=== PATIENT | female | born 1945 | race Hispanic/Latino ===

== ENCOUNTER 2016-12-01 10:50 | Emergency (ER) | payer MEDICARE ==
[2016-12-01 10:58] VITALS: BP 155/78; PULSE 80; RESP 18; TEMP 98.7; O2SAT 100
[2016-12-01] MEDS ORDERED: Sodium Chloride 0.9% 1,000 ML IV STA (11:22)
--- NOTE | 2016-12-01 11:26 | ED PDOC ---
HPI: General Adult Time Seen by Provider: 12/01/16 11:09 Chief Complaint (Nursing): Weakness/Neurological Deficit History Per: Patient (presents to the ER because of concerns over sensation of bilateral lower extremity weakness that she has noticed for the past 2-3 weeks. She states that she was seen by her PMD 2 weeks ago but reports that no tests were done. States that her gait is not affecteed by this weakness. She has also noticed her heart beating fasting but that there is no other heart or lung symptoms) History/Exam Limitations: no limitations Onset/Duration Of Symptoms: Intermittent Episodes Current Symptoms Are (Timing): Still Present Severity: Mild Past Medical History Reviewed: Historical Data, Nursing Documentation, Vital Signs Vital Signs: Last Vital Signs Temp 98.7 F 12/01/16 10:55 Pulse 80 12/01/16 10:55 Resp 18 12/01/16 10:55 BP 155/78 H 12/01/16 10:55 Pulse Ox 100 12/01/16 11:28 - Surgical History Surgical History: No Surg Hx - Family History Family History: States: No Known Family Hx - Living Arrangements Living Arrangements: Alone () - Social History Current smoker - smoking cessation education provided: No Ex-Smoker (has not smoked in the last 12 months): No Alcohol: None Drugs: Denies - Allergies Allergies/Adverse Reactions: Allergies Allergy/AdvReac Type Severity Reaction Status Date / Time No Known Allergies Allergy Verified 12/01/16 10:58 Review of Systems ROS Statement: Except As Marked, All Systems Reviewed And Found Negative Cardiovascular: Positive for: Palpitations. Negative for: Chest Pain Respiratory: Negative for: Cough, Shortness of Breath Gastrointestinal: Negative for: Nausea, Vomiting, Abdominal Pain, Diarrhea Genitourinary Female: Negative for: Dysuria, Hematuria Musculoskeletal: Negative for: Neck Pain, Shoulder Pain Neurological: Negative for: Weakness, Numbness, Incoordination, Change in Speech , Confusion, Seizures, Altered Mental Status - Laboratory Results Result Diagrams: 12/01/16 11:38 12/01/16 11:38 - ECG ECG: Positive for: Viewed By Me ECG Rhythm: Positive for: Normal QRS Interpretation Of ECG: normal O2 Sat by Pulse Oximetry: 100 - Progress Re-evaluation Time: 12:35 Condition: Re-examined Disposition - Clinical Impression Clinical Impression: Leg weakness, bilateral, Intermittent palpitations - Patient ED Disposition Is Patient to be Admitted: No Doctor Will See Patient In The: Office - Disposition Referrals: Alhaji Eli I [Medical Doctor] - Disposition: Routine/Home Disposition Time: 12:15 Condition: STABLE Instructions: Weakness (ED), Palpitations (ED) Forms: [facility] (Bangladeshi) - POA Present On Arrival: None
[2016-12-01 11:43] LABS: BASO % 0.3 % (0.0-2.0); EOS % 0.1 % (0.0-4.0); HEMATOCRIT 40.3 % (34.0-47.0); LYMPH # 1.3 K/uL (1.0-4.3); LYMPH % 14.9 % (20.0-40.0); MEAN CELL VOLUME 94.7 fl (81.0-99.0); MEAN CORPUSCULAR HEMOGLOBIN 31.9 pg (27.0-31.0); MEAN CORPUSCULAR HGB CONC 33.6 g/dL (33.0-37.0); MEAN PLATELET VOLUME 9.1 fl (7.2-11.7); MONO # 0.3 K/uL (0.0-0.8); MONO % 3.2 % (0.0-10.0); NEUT # 7.1 K/uL (1.8-7.0); NEUT % 81.5 % (50.0-75.0); NRBC % 0.1 % (0.0-0.0); RED CELL DISTRIBUTION WIDTH 12.6 % (11.5-14.5); WHITE BLOOD COUNT 8.7 K/uL (4.8-10.8)
[2016-12-01 11:58] LABS: ALB/GLOB RATIO 1.6 (1.0-2.1); ALKALINE PHOSPHATASE 98 U/L (38-126); ALT/SGPT 43 U/L (9-52); AST/SGOT 30 U/L (14-36); BILIRUBIN,TOTAL 1.2 mg/dl (0.2-1.3); BLOOD UREA NITROGEN 10 mg/dl (7-17); CARBON DIOXIDE 23 mmol/L (22-30); CHLORIDE 107 mmol/L (98-107); GFR AFRICAN-AMERICAN > 60; GLUCOSE,RANDOM 105 mg/dL (65-105); POTASSIUM 3.9 MMOL/L (3.6-5.0); SODIUM 144 mmol/l (132-148); TOTAL PROTEIN 8.4 G/DL (6.3-8.2)
--- NOTE | 2016-12-01 15:14 | CARD ---
APPROVED REPORT EKG Measurement Heart [id number] <Conclusion> Sinus rhythm with premature atrial complexes Otherwise normal ECG
[2016-12-01 18:13] LABS: FOLATE > 20.0 ng/mL
== END 2016-12-01 12:49 | disposition home or self-care (01) ==
LOC: H.ER 10:50
DX: R53.1 Weakness (principal); R00.2 Palpitations; I49.1 Atrial premature depolarization; Z87.891 Personal history of nicotine dependence
CPT/HCPCS: 80053; 82607; 82746; 82948; 85025; 93005; 99285; G0480; J7040

== ENCOUNTER 2016-12-11 14:10 | Emergency (ER) | payer MEDICARE ==
[2016-12-11] MEDS ORDERED: Iohexol 240 (50 ml) ONE (15:27)
[2016-12-11] MEDS ORDERED: Sodium Chloride 0.9% 50 ML IV ONE (17:45)
[2016-12-11] MEDS ORDERED: Iohexol 300 100 ML IJ ONE (17:45)
[2016-12-12 21:46] LABS: HEMOGLOBIN 13.3 g/dL (12.0-16.0); MEAN CELL VOLUME 96.4 fl (81.0-99.0); MEAN CORPUSCULAR HEMOGLOBIN 31.8 pg (27.0-31.0); RBC 4.16 Mil/uL (3.80-5.20); WHITE BLOOD COUNT 7.8 K/uL (4.8-10.8)
[2016-12-12 21:47] LABS: BASO % 0.7 % (0.0-2.0); EOS % 0.2 % (0.0-4.0); LYMPH # 1.4 K/uL (1.0-4.3); LYMPH % 17.7 % (20.0-40.0); MEAN PLATELET VOLUME 9.6 fl (7.2-11.7); MONO # 0.4 K/uL (0.0-0.8); MONO % 5.4 % (0.0-10.0); NEUT # 5.9 K/uL (1.8-7.0); NRBC % 0.1 % (0.0-0.0); RED CELL DISTRIBUTION WIDTH 12.7 % (11.5-14.5)
[2016-12-12 21:48] LABS: BASO # 0.1 K/uL (0.0-0.2)
[2016-12-13 07:38] LABS: ALB/GLOB RATIO 1.6 (1.0-2.1); ALBUMIN 5.1 g/dL (3.5-5.0); CALCIUM 9.9 mg/dL (8.4-10.2)
--- NOTE | 2016-12-13 15:18 | CT ---
PROCEDURE: CT abdomen pelvis dated 12/11/2016 HISTORY: Abdominal pain COMPARISON: None. TECHNIQUE: Contiguous axial images of the abdomen and pelvis performed following oral and intravenous injection of approximately 80 cc Omnipaque 300 contrast material. . Coronal and Sagittal reformats generated. Radiation dose: Total exam DLP = 337.01 mGy-cm. This CT exam was performed using one or more of the following dose reduction techniques: Automated exposure control, adjustment of the mA and/or kV according to patient size, and/or use of iterative reconstruction technique. FINDINGS: LOWER THORAX: Mild dependent/ passive type atelectasis both lung bases. Lung bases otherwise clear LIVER: Liver exhibits normal size. Mild fatty hepatic infiltration. . No obvious hepatic mass or collection however tiny at calcification left lobe liver most consistent with a tiny calcified granulomata and prior exposure to prior exposure to a granulomatous disease process. . Portal and splenic veins are opacified. GALLBLADDER AND BILE DUCTS: Gallbladder appears incompletely distended. . No evidence of intraluminal gallbladder calculi. PANCREAS: Unremarkable. No mass. No ductal dilatation. SPLEEN: Few calcified granulomata seen within the splenic parenchyma consistent with prior exposure to a granulomatous disease process. ADRENALS: No adrenal lesions. KIDNEYS AND URETERS: Kidneys demonstrate symmetric nephrograms. No evidence of nephrolithiasis or hydronephrosis. BLADDER: Urinary bladder is physiologically distended. No evidence of intraluminal urinary bladder calculi. REPRODUCTIVE: Unremarkable. APPENDIX: Unremarkable. BOWEL: Evaluation of the bowel is limited due to due to incomplete opacification. The stomach is incompletely distended which presumably accounts thick-walled appearance. Gastritis not excluded. Visualized loops of small bowel exhibit normal contour and caliber. No evidence of acute mechanical small bowel obstruction with oral contrast material extending into the colon to the level of the rectum. Scattered colonic diverticula the bulk of which arise from the sigmoid colon. There is moderate wall thickening of the distal sigmoid suggesting mild acute diverticulitis however no obvious inflammatory changes within the adjacent mesenteric this time. PERITONEUM: Unremarkable. No fluid collection. No free air. LYMPH NODES: Unremarkable. No enlarged lymph nodes. VASCULATURE: Unremarkable. No aortic aneurysm. BONES: Mild multilevel degenerative spondylosis of the lower thoracic and lumbar spine. OTHER FINDINGS: None. IMPRESSION: Diverticulosis with wall thickening of the distal sigmoid colon suggesting mild acute diverticulitis. Clinical correlation recommended. Note that these findings were discussed with emergency room physicians ophthalmic surgical assistant Kami Boyd at approximately 12:57 p.m. with written down and read back verification. . Mild fatty hepatic infiltration. Small calcified granuloma left lobe liver with a few small to medium sized calcified granuloma within the splenic parenchyma. Findings consistent with prior exposure to a granulomatous disease process.
[2016-12-15 19:43] VITALS: BMI 26.5
--- NOTE | 2016-12-16 06:51 | CARD ---
APPROVED REPORT EKG Measurement Heart [id number] MS [id number] <Conclusion> Sinus rhythm with short MS with frequent premature ventricular complexes Otherwise normal ECG
== END 2016-12-11 19:49 | disposition home or self-care (01) ==
LOC: H.ER 14:10
DX: E86.0 Dehydration (principal); D64.9 Anemia, unspecified; E87.8 Other disorders of electrolyte and fluid balance, not elsewhere classified; K85.90 Acute pancreatitis without necrosis or infection, unspecified; K29.70 Gastritis, unspecified, without bleeding
CPT/HCPCS: 74177; 80053; 82150; 83690; 85025; 99284; Q9967

== ENCOUNTER 2016-12-13 10:24 | Emergency (ER) | payer MEDICARE ==
[2016-12-13] MEDS ORDERED: Sodium Chloride 0.9% 1,000 ML IV STA (11:02)
--- NOTE | 2016-12-13 11:09 | ED PDOC ---
HPI: General Adult Time Seen by Provider: 12/13/16 10:46 Chief Complaint (Nursing): GI Problem Chief Complaint (Provider): nausea History Per: Patient History/Exam Limitations: no limitations Onset/Duration Of Symptoms: Days (x 2 weeks ) Additional Complaint(s): Gladis Clements is a 71 year old female, with no previous medical history, who presents to the ED for the evaluation of nausea ongoing for the past 2 weeks. Patient reports nausea is inhibiting her from eating solids causing her to feel "lousy" and believes to be loosing weight. She reports being able to tolerate liquids. Patient was seen by her PMD who prescribed zofran which is not providing her with relief. she denies any fever, abdominal pain or diarrhea. PMD: none provided Past Medical History Reviewed: Historical Data, Nursing Documentation, Vital Signs Vital Signs: Last Vital Signs Temp 97.6 F 12/13/16 15:49 Pulse 77 12/13/16 15:49 Resp 16 12/13/16 15:49 BP 126/72 12/13/16 15:49 Pulse Ox 97 12/16/16 12:36 - Medical History PMH: No Chronic Diseases - Family History Family History: States: Unknown Family Hx - Home Medications Home Medications: Ambulatory Orders Medication Instructions Recorded Famotidine [Pepcid] 20 mg PO BID #20 tab 12/13/16 Metoclopramide [Reglan] 10 mg PO TID PRN #15 tab 12/13/16 - Allergies Allergies/Adverse Reactions: Allergies Allergy/AdvReac Type Severity Reaction Status Date / Time No Known Allergies Allergy Verified 12/11/16 14:25 Review of Systems ROS Statement: Except As Marked, All Systems Reviewed And Found Negative Constitutional: Negative for: Fever, Chills Gastrointestinal: Positive for: Nausea. Negative for: Vomiting, Abdominal Pain , Diarrhea, Constipation Physical Exam - Reviewed Nursing Documentation Reviewed: Yes Vital Signs Reviewed: Yes - Physical Exam Appears: Positive for: Well, Non-toxic, No Acute Distress Head Exam: Positive for: ATRAUMATIC, NORMAL INSPECTION, NORMOCEPHALIC Skin: Positive for: Normal Color, Warm, DRY Eye Exam: Positive for: EOMI, Normal appearance, PERRL ENT: Positive for: Normal ENT Inspection Neck: Positive for: Normal, Painless ROM Cardiovascular/Chest: Positive for: Regular Rate, Rhythm Respiratory: Positive for: CNT, Normal Breath Sounds Gastrointestinal/Abdominal: Positive for: Normal Exam, Bowel Sounds, Soft. Negative for: Tenderness, Mass, Distended, Guarding, Rebound Back: Positive for: Normal Inspection Extremity: Positive for: Normal ROM Neurologic/Psych: Positive for: Alert, Oriented - Laboratory Results Result Diagrams: 12/13/16 11:21 12/13/16 11:21 - ECG O2 Sat by Pulse Oximetry: 97 (RA) Pulse Ox Interpretation: Normal Medical Decision Making Medical Decision Making: Initial Impression: nausea Initial Plan: * EKG * labs * lipase * urine dipstick * PT * PTT * IV NS 1,000 ml at 1,000 ml/hr * reglan 10 mg IV * urinalysis * reevaluation Scribe Attestation: Documented by Kierra Perrin, acting as a scribe for Kierra Moore MD. Provider Scribe Attestation: All medical record entries made by the Scribe were at my direction and personally dictated by me. I have reviewed the chart and agree that the record accurately reflects my personal performance of the history, physical exam, medical decision making, and the department course for this patient. I have also personally directed, reviewed, and agree with the discharge instructions and disposition. Disposition - Clinical Impression Clinical Impression: Nausea in adult, Gastritis - Disposition Referrals: Alhaji Eil I [Family Provider] - Disposition: Routine/Home Disposition Time: 15:39 Condition: STABLE Prescriptions: Famotidine [Pepcid] 20 mg PO BID #20 tab Metoclopramide [Reglan] 10 mg PO TID PRN #15 tab PRN Reason: Nausea/Vomiting Instructions: Gastritis (ED), Acute Nausea and Vomiting (ED)
[2016-12-13 11:29] LABS: BASO % 0.3 % (0.0-2.0); EOS % 0.1 % (0.0-4.0); HEMOGLOBIN 12.6 g/dL (12.0-16.0); LYMPH # 1.4 K/uL (1.0-4.3); LYMPH % 15.6 % (20.0-40.0); MEAN CELL VOLUME 96.1 fl (81.0-99.0); MEAN CORPUSCULAR HEMOGLOBIN 31.9 pg (27.0-31.0); MEAN CORPUSCULAR HGB CONC 33.2 g/dL (33.0-37.0); MEAN PLATELET VOLUME 9.3 fl (7.2-11.7); MONO # 0.4 K/uL (0.0-0.8); MONO % 4.5 % (0.0-10.0); NEUT # 6.9 K/uL (1.8-7.0); NEUT % 79.5 % (50.0-75.0); NRBC % 0.1 % (0.0-0.0); RBC 3.93 Mil/uL (3.80-5.20); WHITE BLOOD COUNT 8.7 K/uL (4.8-10.8)
[2016-12-13 11:42] LABS: ALB/GLOB RATIO 1.9 (1.0-2.1); ALBUMIN 4.8 g/dL (3.5-5.0); ALT/SGPT 30 U/L (9-52); AST/SGOT 32 U/L (14-36); BLOOD UREA NITROGEN 10 mg/dl (7-17); CALCIUM 9.8 mg/dL (8.4-10.2); GFR AFRICAN-AMERICAN 59; GFR NON-AFRICAN AMERICAN 49; LIPASE 239 U/L (23-300)
[2016-12-13 12:02] LABS: SQUAMOUS EPITHIAL < 1 /hpf (0-5); URINE BACTERIA RARE (<OCC); URINE BILIRUBIN NEGATIVE (NEGATIVE); URINE BLOOD NEGATIVE (NEGATIVE); URINE CLARITY CLEAR (Clear); URINE COLOR STRAW (YELLOW); URINE GLUCOSE (UA) NEG (Normal); URINE LEUKOCYTE ESTERASE MOD Leu/uL (Negative); URINE NITRATE NEGATIVE (NEGATIVE); URINE PROTEIN NEGATIVE (NEGATIVE); URINE UROBILINOGEN 0.2-1.0 mg/dL (0.2-1.0)
[2016-12-13 12:11] LABS: PARTIAL THROMBOPLASTIN TIME 28.7 Seconds (25.6-37.1); PROTHROMBIN TIME 11.2 Seconds (9.8-13.1)
--- NOTE | 2016-12-13 14:55 | RAD ---
HISTORY: Nausea COMPARISON: 12/11/2016. CT abdomen and pelvis. FINDINGS: BOWEL: Normal. No obstruction. No free air. Residual contrast in an otherwise unremarkable colon related to prior CT scan. BONES: Normal. OTHER FINDINGS: None. IMPRESSION: No acute findings related to/accounting for the clinical presentation. Additional benign and/or incidental findings described above.
[2016-12-13 15:50] VITALS: BP 126/72; PULSE 77; RESP 16; TEMP 97.6
--- NOTE | 2016-12-13 22:43 | CARD ---
APPROVED REPORT EKG Measurement Heart [id number] MO 110P52 [id number] <Conclusion> Sinus rhythm with short MO Septal infarct, age undetermined Abnormal ECG
[2016-12-16 12:37] VITALS: O2SAT 97
== END 2016-12-13 15:50 | disposition home or self-care (01) ==
LOC: H.ER 10:24
DX: K29.70 Gastritis, unspecified, without bleeding (principal); R11.0 Nausea
CPT/HCPCS: 74022; 80053; 81003; 83690; 84484; 85025; 85610; 85730; 93005; 96374; 99282; J2765; J7040

== ENCOUNTER 2016-12-19 18:23 | Emergency (ER) | payer MEDICARE ==
[2016-12-19 18:33] VITALS: BP 153/83; PULSE 90; RESP 18; TEMP 99.1; O2SAT 98
--- NOTE | 2016-12-19 19:11 | ED PDOC ---
HPI: General Adult Time Seen by Provider: 12/19/16 18:51 Chief Complaint (Nursing): Anxiety Chief Complaint (Provider): Weakness x 1 month History Per: Patient History/Exam Limitations: no limitations Onset/Duration Of Symptoms: Days Have you had recent travel within the past 21 days to any of the following countries: [place], [place], [place] or [place]?: No Current Symptoms Are (Timing): Still Present Additional Complaint(s): Pt reports generalized weakness and decreased appetite for 1 month. PT states she was seen here for the same a few days ago and was given pepcid and bentyl. Note was reviewed from previous visit and pt reports N/V at that time. PT denies any pain. PT states she has no appetite and was only able to eat 2 very sma/l meals today. PT denies fever/chills. PT states "I think I need an IV again ". Pt states this evening she felt like her heat was beating fast and she felt like she might pass out which has since resolved. PT was given Rx for zoloft by PMD 2 weeks ago. PT states she took one today but has not been taking it daily. Past Medical History Reviewed: Historical Data, Nursing Documentation, Vital Signs Vital Signs: Last Vital Signs Temp 99.1 F 12/19/16 18:31 Pulse 90 12/19/16 18:31 Resp 18 12/19/16 18:31 BP 153/83 H 12/19/16 18:31 Pulse Ox 98 12/19/16 19:19 - Medical History PMH: Anxiety - Surgical History Surgical History: No Surg Hx - Family History Family History: States: Unknown Family Hx - Home Medications Home Medications: Ambulatory Orders Medication Instructions Recorded Famotidine [Pepcid] 20 mg PO DAILY 12/19/16 Metoclopramide [Reglan] 10 mg PO TID PRN 12/19/16 Sertraline [Zoloft] 25 mg PO DAILY 12/19/16 - Allergies Allergies/Adverse Reactions: Allergies Allergy/AdvReac Type Severity Reaction Status Date / Time No Known Allergies Allergy Verified 12/19/16 18:31 Review of Systems ROS Statement: Except As Marked, All Systems Reviewed And Found Negative Cardiovascular: Positive for: Palpitations (Resolved ). Negative for: Chest Pain Physical Exam - Reviewed Nursing Documentation Reviewed: Yes Vital Signs Reviewed: Yes - Physical Exam Appears: Positive for: Well, Non-toxic, No Acute Distress Head Exam: Positive for: ATRAUMATIC, NORMAL INSPECTION, NORMOCEPHALIC Skin: Positive for: Normal Color, Warm, DRY Eye Exam: Positive for: EOMI, Normal appearance, PERRL ENT: Positive for: Normal ENT Inspection Neck: Positive for: Normal, Painless ROM Cardiovascular/Chest: Positive for: Regular Rate, Rhythm Respiratory: Positive for: Normal Breath Sounds. Negative for: Accessory Muscle Use Gastrointestinal/Abdominal: Positive for: Normal Exam, Bowel Sounds, Soft Back: Positive for: Normal Inspection Extremity: Positive for: Normal ROM Neurologic/Psych: Positive for: Alert, lens block gauger II-XII, Oriented, Gait. Negative for : Cerebellar Tests - ECG O2 Sat by Pulse Oximetry: 98 Medical Decision Making Medical Decision Making: Labs and head CT ordered. PT has normal chest and abdomen CT in the last 2 weeks. Endorsed at 2000 to Kami Jackson PA-C Disposition - Clinical Impression Clinical Impression: Generalized weakness - Patient ED Disposition Is Patient to be Admitted: Transfer of Care - Disposition Disposition: Transfer of Care Disposition Time: 19:42 Condition: STABLE Instructions: Weakness (ED)
[2016-12-19 20:00] LABS: HEMOGLOBIN 13.2 g/dL (12.0-16.0); MEAN CELL VOLUME 96.1 fl (81.0-99.0); MEAN CORPUSCULAR HEMOGLOBIN 31.9 pg (27.0-31.0); MEAN CORPUSCULAR HGB CONC 33.2 g/dL (33.0-37.0); RBC 4.14 Mil/uL (3.80-5.20); RED CELL DISTRIBUTION WIDTH 12.8 % (11.5-14.5); WHITE BLOOD COUNT 9.1 K/uL (4.8-10.8)
[2016-12-19 20:08] LABS: ALB/GLOB RATIO 1.8 (1.0-2.1); ALBUMIN 5.1 g/dL (3.5-5.0); ALT/SGPT 39 U/L (9-52); AST/SGOT 24 U/L (14-36); BLOOD UREA NITROGEN 9 mg/dl (7-17); GFR AFRICAN-AMERICAN > 60; GFR NON-AFRICAN AMERICAN 54
[2016-12-19 20:14] LABS: PARTIAL THROMBOPLASTIN TIME 31.5 Seconds (25.6-37.1); PROTHROMBIN TIME 11.1 Seconds (9.8-13.1)
--- NOTE | 2016-12-19 20:40 | CT ---
EXAM: CT Head Without Intravenous Contrast CLINICAL HISTORY: 71 years old, female; Pain; Headache; Other: Mild burgos's weakness loss of appetite; Additional info: Lightheadedness TECHNIQUE: Axial computed tomography images of the head/brain without intravenous contrast. This CT exam was performed using one or more of the following dose reduction techniques: automated exposure control, adjustment of the mA and/or kV according to patient size, and/or use of iterative reconstruction technique. Coronal and sagittal reformatted images were created and reviewed. EXAM DATE/TIME: 12/19/2016 7:22 PM COMPARISON: No relevant prior studies available. FINDINGS: BRAIN: Diffuse, age-related cortical atrophy and ventriculomegaly. Physiologic basal ganglia calcification. No significant acute abnormality identified. No acute hemorrhage seen within the brain. No acute extra-axial fluid collections visualized. No evidence of significant mass effect within the brain. Normal summers-white matter differentiation. VENTRICLES: See above. BONES/JOINTS: No acute fractures or other acute bony abnormality noted. SOFT TISSUES: No acute abnormality of the visualized soft tissues is seen. SINUSES: Visualized paranasal sinuses appear clear. MASTOID AIR CELLS: Mastoid air cells appear clear. IMPRESSION: - No acute findings seen within the brain. - See above for remaining findings.
--- NOTE | 2016-12-19 20:44 | ED PDOC ---
- Laboratory Results Result Diagrams: 12/19/16 19:52 12/19/16 19:50 - ECG O2 Sat by Pulse Oximetry: 98 Medical Decision Making Medical Decision Making: Case endorsed to administrative underwriter from AROLDO ford at 20:00 pending diagnostic review and re-eval HPI reviewed: HPI: General Adult Time Seen by Provider: 12/19/16 18:51 Chief Complaint (Nursing): Anxiety Chief Complaint (Provider): Weakness x 1 month History Per: Patient History/Exam Limitations: no limitations Onset/Duration Of Symptoms: Days Have you had recent travel within the past 21 days to any of the following countries: [place], [place], [place] or [place]?: No Current Symptoms Are (Timing): Still Present Additional Complaint(s): Pt reports generalized weakness and decreased appetite for 1 month. PT states she was seen here for the same a few days ago and was given pepcid and bentyl. Note was reviewed from previous visit and pt reports N/V at that time. PT denies any pain. PT states she has no appetite and was only able to eat 2 very sma/l meals today. PT denies fever/chills. PT states "I think I need an IV again ". Pt states this evening she felt like her heat was beating fast and she felt like she might pass out which has since resolved. PT was given Rx for zoloft by PMD 2 weeks ago. PT states she took one today but has not been taking it daily. Upon my eval, pt in bed in NAD. Pt calm and comfortable, offers no complaints. CT scan: Negative Labs resulted and reviewed with Pt who demonstrated full understanding Pt without any complaints on re-eval. stable for discharge home Disposition - Clinical Impression Clinical Impression: Generalized weakness - POA Present On Arrival: None - Disposition Disposition: Routine/Home Disposition Time: 22:14 Condition: STABLE Instructions: Weakness (ED)
--- NOTE | 2016-12-20 08:04 | CARD ---
APPROVED REPORT EKG Measurement Heart [id number] VT [id number] [id number] <Conclusion> Normal sinus rhythm Normal ECG
== END 2016-12-19 22:30 | disposition home or self-care (01) ==
LOC: H.ER 18:23
DX: R53.1 Weakness (principal)

== ENCOUNTER 2016-12-24 10:18 | Emergency (ER) | payer MEDICARE ==
[2016-12-24 10:34] VITALS: BP 152/90; RESP 18; TEMP 97.7; O2SAT 98
--- NOTE | 2016-12-24 11:05 | ED PDOC ---
HPI: General Adult Time Seen by Provider: 12/24/16 10:29 Chief Complaint (Nursing): Weakness/Neurological Deficit Chief Complaint (Provider): Generalized weakness History Per: Patient History/Exam Limitations: no limitations Onset/Duration Of Symptoms: Other (Two weeks) Additional Complaint(s): Patient is a 71 year old female with a history of anxiety presenting to the ED with complaints of generalized weakness and palpitations that has been ongoing for two weeks. Patient denies chest pain, shortness of breath, and dizziness. She was seen multiple times in the past for the same symptoms with workup that included labs, CT head, and a CT Abd that revealed questionable diverticulitis, for which the patient has failed to follow up with the GI doctor. PCP: none provided Past Medical History Reviewed: Historical Data, Nursing Documentation, Vital Signs Vital Signs: Last Vital Signs Temp 97.7 F 12/24/16 10:27 Pulse 85 12/24/16 10:27 Resp 18 12/24/16 10:27 BP 152/90 H 12/24/16 10:27 Pulse Ox 98 12/24/16 11:19 - Medical History PMH: Anxiety - Family History Family History: States: Unknown Family Hx - Home Medications Home Medications: Ambulatory Orders Medication Instructions Recorded Famotidine [Pepcid] 20 mg PO DAILY 12/19/16 Metoclopramide [Reglan] 10 mg PO TID PRN 12/19/16 Sertraline [Zoloft] 25 mg PO DAILY 12/19/16 Ciprofloxacin HCl [Cipro] 500 mg PO BID #20 tab 12/24/16 Metronidazole [Flagyl] 500 mg PO TID #30 tablet 12/24/16 - Allergies Allergies/Adverse Reactions: Allergies Allergy/AdvReac Type Severity Reaction Status Date / Time No Known Allergies Allergy Verified 12/19/16 18:31 Review of Systems ROS Statement: Except As Marked, All Systems Reviewed And Found Negative Constitutional: Positive for: Weakness (generalized) Cardiovascular: Positive for: Palpitations. Negative for: Chest Pain Respiratory: Negative for: Shortness of Breath Neurological: Negative for: Dizziness Physical Exam - Reviewed Nursing Documentation Reviewed: Yes Vital Signs Reviewed: Yes - Physical Exam Appears: Positive for: Well, Non-toxic, No Acute Distress Head Exam: Positive for: ATRAUMATIC, NORMAL INSPECTION, NORMOCEPHALIC Skin: Positive for: Normal Color, Warm, Dry Eye Exam: Positive for: EOMI, Normal appearance, PERRL ENT: Positive for: Normal ENT Inspection Neck: Positive for: Normal, Painless ROM, Supple Cardiovascular/Chest: Positive for: Other (irregular) Respiratory: Positive for: CNT, Normal Breath Sounds Gastrointestinal/Abdominal: Positive for: Normal Exam, Soft. Negative for: Tenderness Back: Positive for: Normal Inspection Extremity: Negative for: Swelling Neurologic/Psych: Positive for: Alert, Oriented. Negative for: Motor/Sensory Deficits - ECG ECG: Positive for: Discussed With Directory Operator. Negative for: Interpreted By Me (interpreted by PAC) ECG Rhythm: Positive for: Atrial Fibrillation Interpretation Of Abn EKG: Read by computer but reviewed by Dr. Amaya. P wave present but ECG shows a poor reflection of PAC. O2 Sat by Pulse Oximetry: 98 (RA) Pulse Ox Interpretation: Normal Medical Decision Making Medical Decision Making: Scribe Attestation: Documented by Rosalia Valdez, acting as a scribe for Randolph Wells MD. Provider Scribe Attestation: All medical record entries made by the Scribe were at my direction and personally dictated by me. I have reviewed the chart and agree that the record accurately reflects my personal performance of the history, physical exam, medical decision making, and the department course for this patient. I have also personally directed, reviewed, and agree with the discharge instructions and disposition. Disposition - Clinical Impression Clinical Impression: Diverticulitis - Patient ED Disposition Is Patient to be Admitted: No Counseled Patient/Family Regarding: Diagnosis, Need For Followup, Rx Given - Disposition Referrals: Rafa Cooper MD, PhD [Staff Provider] - Disposition: Routine/Home Disposition Time: 12:06 Condition: FAIR Prescriptions: Ciprofloxacin HCl [Cipro] 500 mg PO BID #20 tab Metronidazole [Flagyl] 500 mg PO TID #30 tablet Instructions: Diverticulitis (ED)
[2016-12-24 12:38] VITALS: PULSE 88
--- NOTE | 2016-12-25 13:52 | CARD ---
APPROVED REPORT EKG Measurement Heart [id number] <Conclusion> Multiform frequent APCs Abnormal ECG
== END 2016-12-24 12:09 | disposition home or self-care (01) ==
LOC: H.ER 10:18
DX: K57.92 Diverticulitis of intestine, part unspecified, without perforation or abscess without bleeding (principal); F41.9 Anxiety disorder, unspecified; R00.2 Palpitations